=== PATIENT | male | born 1940 | race Caucasian/White ===

== ENCOUNTER 2017-06-04 12:01 | Inpatient (IN) | payer MEDICARE, OTHER ==
[~2017-06-04] VITALS: Ht 182.9 cm; Wt 82.4 kg
[2017-06-04] MEDS ORDERED: SODIUM CHLORIDE 0.9% 1,000 ML IV ONE (12:31)
[2017-06-04] MEDS ORDERED: SODIUM CHLORIDE 0.9% 1,000ML IVBOLUS ONE ×2 (13:00)
[2017-06-04] MEDS ORDERED: SODIUM CHLORIDE FLUSH 10ML SYR IVF ONE (13:00)
[2017-06-04 13:15] LABS: MEAN CORPUSCULAR HEMOGLOBIN 41.5 pg (27.5-34.5); PLATELET COUNT 156 x10^3/uL (130-400); RED BLOOD COUNT 3.72 x10^6/uL (4.38-5.82); RED CELL DISTRIBUTION WIDTH 14.6 % (9.4-14.8)
[2017-06-04 13:24] LABS: PROTHROMBIN TIME 10.4 Seconds (9.6-11.5)
[2017-06-04 13:28] LABS: ALANINE AMINOTRANSFERASE 31 U/L (12-78); ALBUMIN 3.5 g/dL (3.4-5.0); ANION GAP 11 mmol/L (5-15); CALCIUM 8.6 mg/dL (8.5-10.1); CHLORIDE 100 mmol/L (98-107)
[2017-06-04 13:33] LABS: ALKALINE PHOSPHATASE 54 U/L (45-117); BILIRUBIN,TOTAL 0.6 mg/dL (0.2-1.0); TOTAL PROTEIN 7.7 g/dL (6.4-8.2); TROPONIN I 0.075 ng/mL (0.000-0.045)
[2017-06-04] MEDS ORDERED: DILTIAZEM 125 MG in DEXTROSE 5% 100 ML IV SCH (13:36)
[2017-06-04] MEDS ORDERED: DILTIAZEM 5 MG/ML, 5ML ONE (13:38)
[2017-06-04 13:39] LABS: BASOPHILS # (AUTO) 0.01 x10^3/uL (0-0.1); BASOPHILS % (AUTO) 0 % (0-1); EOSINOPHILS % (AUTO) 0 % (1-7); LYMPHOCYTES % (AUTO) 15 % (22-44); MD MORPH REVIEW ONLY; MONOCYTES # (AUTO) 0.53 x10^3/uL (0.2-0.8); MONOCYTES % (AUTO) 11 % (2-9); NEUTROPHILS # (AUTO) 3.51 x10^3/uL (1.8-6.8); NEUTROPHILS % (AUTO) 74 % (42-75)
[2017-06-04 13:41] LABS: <PLATELET ESTIMATE> ADEQUATE; <PLT MORPHOLOGY> NORMAL PLT MORPH
[2017-06-04 13:54] LABS: MICROSCOPIC INDICATED
[2017-06-04] MEDS ORDERED: DILTIAZEM 5 MG/ML, 5ML IV ONE (14:00)
[2017-06-04 14:01] LABS: CULTURE INDICATED? YES
[2017-06-04] MEDS ORDERED: ENOXAPARIN 80 MG/0.8 ML ONE (14:24)
[2017-06-04] MEDS ORDERED: ENOXAPARIN 80 MG/0.8 ML SQ ONE (14:30)
[2017-06-04] MEDS ORDERED: TAMS0.4C2 PO (14:37)
[2017-06-04] MEDS ORDERED: FINA5TAB4 PO (14:40)
[2017-06-04] MEDS ORDERED: LISI40TA PO (14:40)
[2017-06-04] MEDS ORDERED: HYDR500C3 PO (14:40)
[2017-06-04] MEDS ORDERED: HYDR25TA6 PO (14:40)
[2017-06-04] MEDS ORDERED: CEFTRIAXONE PMX 2GM/50ML 50 ML ONE (15:23)
[2017-06-04] MEDS: CEFTRIAXONE PMX 2GM/50ML 50 ML IV SCH (15:25)
[2017-06-04] MEDS ORDERED: ONDANSETRON 2MG/ML, 2ML IVPush PRN (15:30)
[2017-06-04] MEDS ORDERED: ACETAMINOPHEN 325 MG TABLET PO PRN (15:30)
[2017-06-04] MEDS ORDERED: morphine SULFATE 10 MG/ML, 1ML IVPush PRN (15:30)
[2017-06-04] MEDS ORDERED: SODIUM CHLORIDE FLUSH 10ML SYR IVF PRN (15:30)
[2017-06-04] MEDS ORDERED: DILTIAZEM 125 MG in SODIUM CHLORIDE 0.9% 100 ML IV PRN (15:30)
[2017-06-04] MEDS ORDERED: POTASSIUM CHLORIDE 40 MEQ in SODIUM CHLORIDE 0.9% 500 ML IV ONE (16:00)
[2017-06-04 16:34] LABS: FREE T4 (FREE THYROXINE) 0.85 ng/dL (0.76-1.46); THYROID STIMULATING HORMONE 0.305 mIU/L (0.358-3.740)
[2017-06-04 16:54] VITALS: BP 101/63
[2017-06-04] MEDS: NICOTINE 14MG/24 HR PATCH.TD24 TD SCH (17:34)
[2017-06-04] MEDS: SODIUM CHLORIDE 0.9% 1,000 ML IV SCH (17:35)
[2017-06-04 18:33] LABS: CLOSTRIDIUM DIFFICILE ANTIGEN NEGATIVE; CLOSTRIDIUM DIFFICILE TOXIN NEGATIVE (Negative)
[2017-06-04 19:22] VITALS: BP 112/64
[2017-06-04] MEDS: DILTIAZEM 30 MG TABLET PO SCH (20:29)
[2017-06-04] MEDS: TAMSULOSIN 0.4 MG CAP.ER.24H PO SCH (20:29)
[2017-06-04] MEDS: DOXYCYCLINE 100MG TABLET PO SCH (20:29)
[2017-06-04] MEDS: HYDROXYUREA 500 MG CAPSULE PO SCH (20:33)
[2017-06-05] MEDS: SODIUM CHLORIDE 0.9% 1,000 ML IV SCH ×4 (00:49→21:46)
[2017-06-05 01:57] VITALS: BP 100/64
[2017-06-05] MEDS: DILTIAZEM 30 MG TABLET PO SCH ×4 (02:05→21:41)
[2017-06-05 05:13] LABS: BASOPHILS # (AUTO) 0.01 x10^3/uL (0-0.1); BASOPHILS % (AUTO) 0 % (0-1); EOSINOPHILS # (AUTO) 0.03 x10^3/uL (0-0.4); EOSINOPHILS % (AUTO) 1 % (1-7); LYMPHOCYTES % (AUTO) 28 % (22-44); MD NO; MEAN CORPUSCULAR HEMOGLOBIN 42.1 pg (27.5-34.5); MEAN CORPUSCULAR HGB CONC 34.7 g/dL (33.2-36.2); MEAN CORPUSCULAR VOLUME 121.5 fL (81-97); MEAN PLATELET VOLUME 8.3 fL (7.4-10.4); MONOCYTES % (AUTO) 14 % (2-9); NEUTROPHILS # (AUTO) 1.57 x10^3/uL (1.8-6.8); NEUTROPHILS % (AUTO) 56 % (42-75); PLATELET COUNT 122 x10^3/uL (130-400); RED BLOOD COUNT 2.94 x10^6/uL (4.38-5.82); RED CELL DISTRIBUTION WIDTH 14.2 % (9.4-14.8)
[2017-06-05 05:21] LABS: ALBUMIN 2.6 g/dL (3.4-5.0); CHLORIDE 110 mmol/L (98-107)
[2017-06-05 05:47] LABS: ALANINE AMINOTRANSFERASE 27 U/L (12-78); ALKALINE PHOSPHATASE 43 U/L (45-117); ANION GAP 7 mmol/L (5-15); BILIRUBIN,TOTAL 0.4 mg/dL (0.2-1.0); CALCIUM 7.7 mg/dL (8.5-10.1); CREATININE 1.52 mg/dL (0.7-1.3); FOLATE LEVEL 17.9 ng/mL (3.1-17.5); THYROID STIMULATING HORMONE 0.496 mIU/L (0.358-3.740); TOTAL PROTEIN 5.8 g/dL (6.4-8.2)
[2017-06-05 08:21] VITALS: BP 100/58
[2017-06-05] MEDS: TAMSULOSIN 0.4 MG CAP.ER.24H PO SCH ×2 (08:26→21:40)
[2017-06-05] MEDS: DOXYCYCLINE 100MG TABLET PO SCH ×2 (08:26→21:41)
[2017-06-05] MEDS: FINASTERIDE 5 MG TABLET PO SCH (08:26)
[2017-06-05] MEDS: HYDROXYUREA 500 MG CAPSULE PO SCH ×2 (09:00→21:00)
[2017-06-05 13:31] LABS: TROPONIN I 0.142 ng/mL (0.000-0.045)
[2017-06-05 14:30] VITALS: BP 99/69
[2017-06-05] MEDS: ENOXAPARIN 40 MG/0.4 ML SQ SCH (15:09)
[2017-06-05] MEDS: CEFTRIAXONE PMX 2GM/50ML 50 ML IV SCH (16:19)
[2017-06-05] MEDS: NICOTINE 14MG/24 HR PATCH.TD24 TD SCH (16:23)
[2017-06-05 20:26] VITALS: BP 113/65
[2017-06-06 02:46] VITALS: BP 99/45
[2017-06-06] MEDS: DILTIAZEM 30 MG TABLET PO SCH ×5 (02:52→21:00)
[2017-06-06 05:59] LABS: MEAN CORPUSCULAR HEMOGLOBIN 41.7 pg (27.5-34.5); MEAN CORPUSCULAR HGB CONC 34.6 g/dL (33.2-36.2); MEAN CORPUSCULAR VOLUME 120.4 fL (81-97); MEAN PLATELET VOLUME 8.1 fL (7.4-10.4); PLATELET COUNT 112 x10^3/uL (130-400); RED BLOOD COUNT 2.56 x10^6/uL (4.38-5.82); RED CELL DISTRIBUTION WIDTH 14.4 % (9.4-14.8)
[2017-06-06 06:00] LABS: ALBUMIN 2.3 g/dL (3.4-5.0); ANION GAP 7 mmol/L (5-15); CALCIUM 7.5 mg/dL (8.5-10.1); CHLORIDE 113 mmol/L (98-107)
[2017-06-06 06:04] LABS: ALANINE AMINOTRANSFERASE 29 U/L (12-78); ALKALINE PHOSPHATASE 39 U/L (45-117); BILIRUBIN,TOTAL 0.4 mg/dL (0.2-1.0); CREATININE 1.22 mg/dL (0.7-1.3); TOTAL PROTEIN 5.2 g/dL (6.4-8.2)
[2017-06-06 06:38] LABS: BASOPHILS # (AUTO) 0.01 x10^3/uL (0-0.1); BASOPHILS % (AUTO) 1 % (0-1); EOSINOPHILS # (AUTO) 0.05 x10^3/uL (0-0.4); EOSINOPHILS % (AUTO) 2 % (1-7); LYMPHOCYTES # (AUTO) 0.98 x10^3/uL (1-3.4); LYMPHOCYTES % (AUTO) 46 % (22-44); MD SCAN; MONOCYTES # (AUTO) 0.33 x10^3/uL (0.2-0.8); MONOCYTES % (AUTO) 15 % (2-9); NEUTROPHILS # (AUTO) 0.76 x10^3/uL (1.8-6.8); NEUTROPHILS % (AUTO) 36 % (42-75)
[2017-06-06 06:41] VITALS: BP 113/63
[2017-06-06] MEDS: HYDROXYUREA 500 MG CAPSULE PO SCH (09:00)
[2017-06-06] MEDS: DOXYCYCLINE 100MG TABLET PO SCH ×2 (10:25→20:07)
[2017-06-06] MEDS: TAMSULOSIN 0.4 MG CAP.ER.24H PO SCH ×2 (10:25→20:07)
[2017-06-06] MEDS: FINASTERIDE 5 MG TABLET PO SCH (10:26)
[2017-06-06] MEDS: SODIUM CHLORIDE 0.9% 1,000 ML IV SCH ×2 (10:27→22:11)
[2017-06-06 12:56] VITALS: BP 131/64
[2017-06-06] MEDS: ENOXAPARIN 40 MG/0.4 ML SQ SCH (15:40)
[2017-06-06] MEDS: CEFTRIAXONE PMX 2GM/50ML 50 ML IV SCH (15:41)
[2017-06-06] MEDS: NICOTINE 14MG/24 HR PATCH.TD24 TD SCH (15:44)
[2017-06-06 15:48] VITALS: BP 137/58
[2017-06-06 20:26] VITALS: BP 138/68
[2017-06-06 22:05] VITALS: BP 169/68
[2017-06-07 02:52] VITALS: BP 145/51
[2017-06-07] MEDS: DILTIAZEM 30 MG TABLET PO SCH ×2 (02:55→09:00)
[2017-06-07] MEDS: ASPIRIN 325 MG TABLET PO SCH (06:29)
[2017-06-07 07:35] VITALS: BP 145/58
[2017-06-07] MEDS: TAMSULOSIN 0.4 MG CAP.ER.24H PO SCH ×2 (10:02→20:18)
[2017-06-07] MEDS: DOXYCYCLINE 100MG TABLET PO SCH ×2 (10:02→20:18)
[2017-06-07] MEDS: FINASTERIDE 5 MG TABLET PO SCH (10:02)
[2017-06-07] MEDS ORDERED: NICO-486 TD (11:47)
[2017-06-07] MEDS ORDERED: ASPI325T17 PO (11:47)
[2017-06-07] MEDS ORDERED: CEFD300C37 PO (11:47)
[2017-06-07] MEDS ORDERED: DOXY100T PO (11:47)
[2017-06-07] MEDS ORDERED: METO25TA91 PO (11:47)
[2017-06-07 13:10] VITALS: BP 155/66
[2017-06-07] MEDS: ENOXAPARIN 40 MG/0.4 ML SQ SCH (15:25)
[2017-06-07] MEDS: CEFTRIAXONE PMX 2GM/50ML 50 ML IV SCH (15:25)
[2017-06-07] MEDS: NICOTINE 14MG/24 HR PATCH.TD24 TD SCH (15:25)
[2017-06-07] MEDS: SODIUM CHLORIDE 0.9% 1,000 ML IV SCH (16:00)
[2017-06-07 19:25] VITALS: BP 144/70
[2017-06-08 03:38] VITALS: BP 119/50
[2017-06-08] MEDS ORDERED: METOPROLOL SUCCINATE 25 MG TAB.ER.24H PO SCH (06:00)
[2017-06-08 07:19] VITALS: BP 148/78
[2017-06-08] MEDS: DOXYCYCLINE 100MG TABLET PO SCH ×2 (10:32→19:48)
[2017-06-08] MEDS: ASPIRIN 325 MG TABLET PO SCH (10:32)
[2017-06-08] MEDS: TAMSULOSIN 0.4 MG CAP.ER.24H PO SCH ×2 (10:32→19:48)
[2017-06-08] MEDS: FINASTERIDE 5 MG TABLET PO SCH (10:32)
[2017-06-08 14:24] VITALS: BP 154/63
[2017-06-08] MEDS: ENOXAPARIN 40 MG/0.4 ML SQ SCH (14:30)
[2017-06-08] MEDS: SODIUM CHLORIDE 0.9% 1,000 ML IV SCH (15:22)
[2017-06-08] MEDS: CEFTRIAXONE PMX 2GM/50ML 50 ML IV SCH (15:22)
[2017-06-08] MEDS: NICOTINE 14MG/24 HR PATCH.TD24 TD SCH (15:22)
[2017-06-08 20:37] VITALS: BP 164/67
[2017-06-09] MEDS: SODIUM CHLORIDE 0.9% 1,000 ML IV SCH ×4 (04:09→19:53)
[2017-06-09 04:13] VITALS: BP 133/56
[2017-06-09] MEDS: FINASTERIDE 5 MG TABLET PO SCH (08:48)
[2017-06-09] MEDS: DOXYCYCLINE 100MG TABLET PO SCH ×2 (08:48→21:29)
[2017-06-09] MEDS: ASPIRIN 325 MG TABLET PO SCH (08:48)
[2017-06-09] MEDS: TAMSULOSIN 0.4 MG CAP.ER.24H PO SCH ×2 (08:48→22:23)
[2017-06-09 08:53] VITALS: BP 162/75
[2017-06-09] MEDS ORDERED: CEFAZOLIN PMX 1GM/50ML 50 ML IVPB ONE (12:00)
[2017-06-09] MEDS: NICOTINE 14MG/24 HR PATCH.TD24 TD SCH (14:19)
[2017-06-09] MEDS: ENOXAPARIN 40 MG/0.4 ML SQ SCH (14:19)
[2017-06-09] MEDS: CEFTRIAXONE PMX 2GM/50ML 50 ML IV SCH (14:19)
[2017-06-09 14:25] VITALS: BP 174/75
[2017-06-09 21:25] VITALS: BP 175/66
[2017-06-09] MEDS: HYDROCHLOROTHIAZIDE 25 MG TABLET PO SCH (21:29)
[2017-06-10 02:30] VITALS: BP 169/66
[2017-06-10] MEDS: SODIUM CHLORIDE 0.9% 1,000 ML IV SCH ×4 (03:53→19:53)
[2017-06-10 04:11] VITALS: BP 169/66
[2017-06-10 05:32] LABS: ANION GAP 8 mmol/L (5-15); CHLORIDE 115 mmol/L (98-107); CREATININE 0.92 mg/dL (0.7-1.3)
[2017-06-10 05:36] LABS: MEAN CORPUSCULAR HEMOGLOBIN 41.5 pg (27.5-34.5); MEAN CORPUSCULAR HGB CONC 34.4 g/dL (33.2-36.2); MEAN CORPUSCULAR VOLUME 120.5 fL (81-97); MEAN PLATELET VOLUME 8.7 fL (7.4-10.4); PLATELET COUNT 136 x10^3/uL (130-400); RED CELL DISTRIBUTION WIDTH 14.1 % (9.4-14.8)
[2017-06-10] MEDS: ASPIRIN 325 MG TABLET PO SCH (06:00)
[2017-06-10 06:32] LABS: BASOPHILS # (AUTO) 0.01 x10^3/uL (0-0.1); BASOPHILS % (AUTO) 1 % (0-1); EOSINOPHILS # (AUTO) 0.06 x10^3/uL (0-0.4); EOSINOPHILS % (AUTO) 2 % (1-7); LYMPHOCYTES # (AUTO) 1.06 x10^3/uL (1-3.4); LYMPHOCYTES % (AUTO) 36 % (22-44); MD SCAN; MONOCYTES # (AUTO) 0.45 x10^3/uL (0.2-0.8); MONOCYTES % (AUTO) 15 % (2-9); NEUTROPHILS % (AUTO) 47 % (42-75)
[2017-06-10] MEDS ORDERED: MIDAZOLAM 1 MG/ML, 5ML ONE ×2 (08:23→08:45)
[2017-06-10] MEDS ORDERED: FENTANYL PF 100 MCG/2ML ONE ×2 (08:23→08:45)
[2017-06-10] MEDS ORDERED: LIDOCAINE 2%, 20ML ONE ×2 (08:23→08:46)
[2017-06-10] MEDS ORDERED: VANCOMYCIN PMX 1GM/200ML 0 ML ONE (08:23)
[2017-06-10] MEDS ORDERED: VANCOMYCIN 500 MG ONE (08:23)
[2017-06-10 08:24] VITALS: BP 173/72
[2017-06-10] MEDS ORDERED: CEFAZOLIN 1,000 MG ONE ×2 (08:25→08:46)
[2017-06-10] MEDS ORDERED: CEFAZOLIN PMX 1GM/50ML 0 ML ONE (08:25)
[2017-06-10] MEDS: FINASTERIDE 5 MG TABLET PO SCH (08:26)
[2017-06-10] MEDS: DOXYCYCLINE 100MG TABLET PO SCH ×2 (08:26→20:39)
[2017-06-10] MEDS: TAMSULOSIN 0.4 MG CAP.ER.24H PO SCH ×2 (08:26→20:38)
[2017-06-10] MEDS: HYDROCHLOROTHIAZIDE 25 MG TABLET PO SCH (08:26)
[2017-06-10] MEDS ORDERED: CEFAZOLIN PMX 1GM/50ML 50 ML ONE (08:46)
[2017-06-10] MEDS ORDERED: HYDROcodone/APAP 5/325 TABLET PO PRN (10:30)
[2017-06-10] MEDS: hydrALAzine 20 MG/ML, 1ML IVPush PRN ×2 (11:00→20:51)
[2017-06-10 12:45] VITALS: BP 164/69
[2017-06-10] MEDS: HYDROcodone/APAP 5/325 TABLET PO PRN ×2 (14:14→22:11)
[2017-06-10] MEDS: ENOXAPARIN 40 MG/0.4 ML SQ SCH (14:30)
[2017-06-10] MEDS ORDERED: CEFAZOLIN PMX 1GM/50ML 50 ML IVPB SCH (17:00)
[2017-06-10] MEDS: CEFTRIAXONE PMX 2GM/50ML 50 ML IV SCH (18:19)
[2017-06-10] MEDS: NICOTINE 14MG/24 HR PATCH.TD24 TD SCH (18:23)
[2017-06-10 20:32] VITALS: BP 176/77
[2017-06-10] MEDS: SODIUM CHLORIDE FLUSH 10ML SYR IVF SCH (21:00)
[2017-06-10 22:13] VITALS: BP 154/68
[2017-06-11] MEDS: SODIUM CHLORIDE 0.9% 1,000 ML IV SCH ×6 (01:21→22:05)
[2017-06-11 01:22] VITALS: BP 158/67
[2017-06-11] MEDS: ASPIRIN 325 MG TABLET PO SCH (07:19)
[2017-06-11 08:54] VITALS: BP 158/70
[2017-06-11] MEDS: TAMSULOSIN 0.4 MG CAP.ER.24H PO SCH ×2 (09:01→22:06)
[2017-06-11] MEDS: HYDROCHLOROTHIAZIDE 25 MG TABLET PO SCH (09:01)
[2017-06-11] MEDS: DOXYCYCLINE 100MG TABLET PO SCH ×2 (09:01→22:06)
[2017-06-11] MEDS: FINASTERIDE 5 MG TABLET PO SCH (09:01)
[2017-06-11] MEDS: SODIUM CHLORIDE FLUSH 10ML SYR IVF SCH ×2 (09:18→22:05)
[2017-06-11] MEDS: METOPROLOL SUCCINATE 25 MG TAB.ER.24H PO SCH (11:23)
[2017-06-11 14:31] VITALS: BP 146/63
[2017-06-11] MEDS: CEFTRIAXONE PMX 2GM/50ML 50 ML IV SCH (15:06)
[2017-06-11] MEDS: NICOTINE 14MG/24 HR PATCH.TD24 TD SCH (15:06)
[2017-06-11] MEDS: ENOXAPARIN 40 MG/0.4 ML SQ SCH (15:06)
[2017-06-11 20:59] VITALS: BP 166/78
[2017-06-11] MEDS: HYDROcodone/APAP 5/325 TABLET PO PRN (22:06)
[2017-06-12 00:32] VITALS: BP 141/63
[2017-06-12] MEDS: SODIUM CHLORIDE 0.9% 1,000 ML IV SCH ×2 (05:40→11:16)
[2017-06-12] MEDS: ASPIRIN 325 MG TABLET PO SCH (06:15)
[2017-06-12] MEDS: METOPROLOL SUCCINATE 25 MG TAB.ER.24H PO SCH (06:15)
[2017-06-12] MEDS: DOXYCYCLINE 100MG TABLET PO SCH (09:00)
[2017-06-12 09:32] VITALS: BP 145/66
[2017-06-12] MEDS: TAMSULOSIN 0.4 MG CAP.ER.24H PO SCH (09:33)
[2017-06-12] MEDS: HYDROCHLOROTHIAZIDE 25 MG TABLET PO SCH (09:33)
[2017-06-12] MEDS: FINASTERIDE 5 MG TABLET PO SCH (09:33)
[2017-06-12] MEDS: SODIUM CHLORIDE FLUSH 10ML SYR IVF SCH (09:33)
[2017-06-12] MEDS ORDERED: METO-93 PO (11:07)
[2017-06-12] MEDS ORDERED: APIX5TAB PO (11:15)
[2017-06-12] MEDS ORDERED: RIVA15TA PO (11:22)
[2017-06-12] MEDS ORDERED: RIVA20TA PO (11:24)
[2017-06-12] MEDS ORDERED: APIXABAN 5 MG TABLET PO SCH (11:30)
[2017-06-12] MEDS ORDERED: RIVAROXABAN 15 MG TABLET PO SCH (11:30)
[2017-06-12] MEDS ORDERED: METOPROLOL SUCCINATE 25 MG TAB.ER.24H PO SCH (21:00)
== END 2017-06-12 12:21 | disposition home or self-care (01) | DRG 871 ==
LOC: SUATTDRO 14:41 → ED 15:14 → EDIP 15:15 → ED 16:21 → 5SO 16:34 → DCLOUNGE 06-12 12:01
PROVIDERS: ADMIT Internal Medicine; ATTEND Internal Medicine
PROC: 0JH606Z Insertion of Pacemaker, Dual Chamber into Chest Subcutaneous Tissue and Fascia, Open Approach (ICD-10-PCS; principal; 2017-06-10)
PROC: 02H63JZ Insertion of Pacemaker Lead into Right Atrium, Percutaneous Approach (ICD-10-PCS; 2017-06-10)
PROC: 02HK3JZ Insertion of Pacemaker Lead into Right Ventricle, Percutaneous Approach (ICD-10-PCS; 2017-06-10)
DX: A41.9 Sepsis, unspecified organism (principal); E43 Unspecified severe protein-calorie malnutrition; G93.40 Encephalopathy, unspecified; J18.9 Pneumonia, unspecified organism; D61.818 Other pancytopenia; A04.72 Enterocolitis due to Clostridium difficile, not specified as recurrent; N17.9 Acute kidney failure, unspecified; D68.69 Other thrombophilia; I48.92 Unspecified atrial flutter; N39.0 Urinary tract infection, site not specified; I48.0 Paroxysmal atrial fibrillation; E86.0 Dehydration; D45 Polycythemia vera; D75.89 Other specified diseases of blood and blood-forming organs; E87.6 Hypokalemia; M89.8X8 Other specified disorders of bone, other site; F17.210 Nicotine dependence, cigarettes, uncomplicated; I10 Essential (primary) hypertension; N40.0 Benign prostatic hyperplasia without lower urinary tract symptoms; Z80.1 Family history of malignant neoplasm of trachea, bronchus and lung; Z96.642 Presence of left artificial hip joint; Z68.24 Body mass index [BMI] 24.0-24.9, adult; I49.5 Sick sinus syndrome
CPT/HCPCS: 33208; 36415; 71045; 80048; 80053; 81001; 82607; 82746; 83605; 83735; 83880; 84100; 84145; 84439; 84443; 84484; 85025; 85610; 85730; 87040; 87070; 87086; 87205; 87324; 93005; 93306; 96361; 96372; 96374; 99156; 99157; C1779; C1785; C1892; J0690; J0696; J1650; J2250; J3010; J3370; J3480; J3490; J0360; J7030; J7040

== ENCOUNTER 2017-06-30 20:20 | Emergency (ER) | payer OTHER ==
[~2017-06-30] VITALS: Ht 182.9 cm; Wt 78.1 kg
[~2017-06-30 20:20] MED LIST: APIX5TAB PO; ASPI325T17 PO; CEFD300C37 PO; DOXY100T PO; FINA5TAB4 PO; HYDR25TA6 PO; HYDR500C3 PO; LISI40TA PO; METO-93 PO; METO25TA91 PO; NICO-486 TD; RIVA15TA PO; RIVA20TA PO; TAMS0.4C2 PO
[2017-06-30] MEDS ORDERED: SODIUM CHLORIDE FLUSH 10ML SYR IVF ONE (21:00)
[2017-06-30 21:09] LABS: ALANINE AMINOTRANSFERASE 19 U/L (12-78); ANION GAP 9 mmol/L (5-15); CALCIUM 7.7 mg/dL (8.5-10.1); CHLORIDE 115 mmol/L (98-107); CREATININE 1.43 mg/dL (0.7-1.3)
[2017-06-30 21:12] LABS: ALKALINE PHOSPHATASE 51 U/L (45-117); BILIRUBIN,TOTAL 0.4 mg/dL (0.2-1.0); TOTAL PROTEIN 6.2 g/dL (6.4-8.2)
[2017-06-30 21:36] LABS: BASOPHILS # (AUTO) 0.02 x10^3/uL (0-0.1); BASOPHILS % (AUTO) 0 % (0-1); EOSINOPHILS # (AUTO) 0.06 x10^3/uL (0-0.4); EOSINOPHILS % (AUTO) 1 % (1-7); LYMPHOCYTES # (AUTO) 1.24 x10^3/uL (1-3.4); LYMPHOCYTES % (AUTO) 28 % (22-44); MD MORPH REVIEW ONLY; MEAN CORPUSCULAR HGB CONC 33.7 g/dL (33.2-36.2); MEAN CORPUSCULAR VOLUME 121.5 fL (81-97); MEAN PLATELET VOLUME 8.3 fL (7.4-10.4); MONOCYTES # (AUTO) 0.43 x10^3/uL (0.2-0.8); MONOCYTES % (AUTO) 10 % (2-9); NEUTROPHILS # (AUTO) 2.63 x10^3/uL (1.8-6.8); NEUTROPHILS % (AUTO) 60 % (42-75); PLATELET COUNT 182 x10^3/uL (130-400); RED BLOOD COUNT 1.99 x10^6/uL (4.38-5.82); RED CELL DISTRIBUTION WIDTH 18.4 % (9.4-14.8)
[2017-06-30 21:38] LABS: <PLATELET ESTIMATE> ADEQUATE; ANISOCYTOSIS 2+; POLYCHROMASIA 1+
[2017-06-30 21:39] LABS: <PLT MORPHOLOGY> NORMAL PLT MORPH
[2017-06-30 22:44] VITALS: BP 133/76
== END 2017-06-30 22:46 | disposition home or self-care (01) ==
LOC: ED 21:15
DX: R60.0 Localized edema (principal); E46 Unspecified protein-calorie malnutrition; E88.09 Other disorders of plasma-protein metabolism, not elsewhere classified; I10 Essential (primary) hypertension; I48.91 Unspecified atrial fibrillation
CPT/HCPCS: 36415; 80053; 83880; 85025; 93005; 99285

== ENCOUNTER → 2017-08-04 | Outpatient (CLI) | payer OTHER ==
[~2017-08-04] MED LIST changes: +LISI-170 PO; +OMEP-110 PO; +ONDA4TAB13 SL; +POLY17PO5 PO
[2017-08-04 11:55] LABS: MEAN CORPUSCULAR HEMOGLOBIN 37.2 pg (27.5-34.5); MEAN CORPUSCULAR HGB CONC 33.8 g/dL (33.2-36.2); MEAN CORPUSCULAR VOLUME 110.2 fL (81-97); PLATELET COUNT 172 x10^3/uL (130-400); RED BLOOD COUNT 3.11 x10^6/uL (4.38-5.82); RED CELL DISTRIBUTION WIDTH 23.2 % (9.4-14.8)
[2017-08-04 12:29] LABS: MD YES
[2017-08-04 12:33] LABS: BASOS#(MANUAL) 0.04 x10^3/uL (0-0.1); BASOS% (MANUAL) 1 % (0-1); EOS#(MANUAL) 0.04 x10^3/uL (0.0-0.4); EOS% (MANUAL) 1 % (1-7); LYMPH#(MANUAL) 1.18 x10^3/uL (1-3.4); LYMPHS% (MANUAL) 28 % (22-44); MONOS#(MANUAL) 0.34 x10^3/uL (0.3-2.7); MONOS% (MANUAL) 8 % (2-9); REACTIVE LYMPHS # (MANUAL) 0.04 x10^3/uL (0-0); REACTIVE LYMPHS % (MANUAL) 1 % (0-0); SEG#(MANUAL) 2.56 x10^3/uL (1.8-6.8); SEGS% (MANUAL) 61 % (42-75)
[2017-08-04 12:36] LABS: <PLATELET ESTIMATE> ADEQUATE; <PLT MORPHOLOGY> NORMAL PLT MORPH; ANISOCYTOSIS 2+; HYPERSEG PMNs 1+; POLYCHROMASIA 1+
== END | disposition home or self-care (01) ==
LOC: LAB 11:32
PROVIDERS: ATTEND Nurse Practitioner Family
DX: D64.9 Anemia, unspecified (principal); I10 Essential (primary) hypertension; I48.92 Unspecified atrial flutter; R06.00 Dyspnea, unspecified; Z95.0 Presence of cardiac pacemaker
CPT/HCPCS: 36415; 85025

== ENCOUNTER 2017-08-11 23:44 | Inpatient (IN) | payer OTHER ==
[~2017-08-11] VITALS: Ht 182.9 cm; Wt 69.4 kg
[2017-08-12 01:07] LABS: ALBUMIN 3.4 g/dL (3.4-5.0); ANION GAP 8 mmol/L (5-15); CALCIUM 8.4 mg/dL (8.5-10.1); CHLORIDE 114 mmol/L (98-107); CREATININE 1.35 mg/dL (0.7-1.3)
[2017-08-12 01:11] LABS: TROPONIN I < 0.015 ng/mL (0.000-0.045)
[2017-08-12 01:17] LABS: MEAN CORPUSCULAR HEMOGLOBIN 37.1 pg (27.5-34.5); MEAN CORPUSCULAR HGB CONC 33.6 g/dL (33.2-36.2); MEAN CORPUSCULAR VOLUME 110.3 fL (81-97); MEAN PLATELET VOLUME 8.7 fL (7.4-10.4); PLATELET COUNT 155 x10^3/uL (130-400); RED BLOOD COUNT 3.16 x10^6/uL (4.38-5.82); RED CELL DISTRIBUTION WIDTH 23.1 % (9.4-14.8)
[2017-08-12 01:52] LABS: BASOPHILS # (AUTO) 0.02 x10^3/uL (0-0.1); BASOPHILS % (AUTO) 0 % (0-1); EOSINOPHILS # (AUTO) 0.15 x10^3/uL (0-0.4); EOSINOPHILS % (AUTO) 3 % (1-7); LYMPHOCYTES # (AUTO) 1.05 x10^3/uL (1-3.4); LYMPHOCYTES % (AUTO) 21 % (22-44); MD SCAN; MONOCYTES # (AUTO) 0.68 x10^3/uL (0.2-0.8); MONOCYTES % (AUTO) 13 % (2-9); NEUTROPHILS # (AUTO) 3.19 x10^3/uL (1.8-6.8); NEUTROPHILS % (AUTO) 63 % (42-75)
[2017-08-12] MEDS ORDERED: OMNIPAQUE 350 MG/ML, 100ML BOTTLE ONE (03:45)
[2017-08-12] MEDS ORDERED: ONDANSETRON 2MG/ML, 2ML IVPush PRN ×2 (05:30→06:00)
[2017-08-12] MEDS ORDERED: MORPHINE SULFATE 4 MG/ML, 1ML IVPush PRN (05:30)
[2017-08-12 06:00] VITALS: BP 159/60
[2017-08-12] MEDS ORDERED: ONDANSETRON ODT 4 MG BC PRN (06:00)
[2017-08-12] MEDS: ENOXAPARIN 40 MG/0.4 ML SQ SCH (06:24)
[2017-08-12] MEDS: SODIUM CHLORIDE 0.9% 1,000 ML IV SCH ×2 (06:24→18:29)
[2017-08-12 07:32] VITALS: BP 181/63
[2017-08-12] MEDS: HYDROXYUREA 500 MG CAPSULE PO SCH ×2 (09:00→21:00)
[2017-08-12] MEDS: POLYETHYLENE GLYCOL 17 GM PACKET PO SCH (10:08)
[2017-08-12] MEDS: TAMSULOSIN 0.4 MG CAP.ER.24H PO SCH ×2 (10:10→22:05)
[2017-08-12] MEDS: OMEPRAZOLE 20 MG CAPSULE.DR PO SCH (10:10)
[2017-08-12] MEDS: METOPROLOL SUCCINATE 50 MG TAB.ER.24H PO SCH (10:10)
[2017-08-12] MEDS: ASPIRIN 325 MG TABLET PO SCH (10:10)
[2017-08-12] MEDS: RIVAROXABAN 15 MG TABLET PO SCH (10:11)
[2017-08-12] MEDS: FINASTERIDE 5 MG TABLET PO SCH (10:11)
[2017-08-12 13:12] VITALS: BP 168/68
[2017-08-12 20:00] VITALS: BP 169/69
[2017-08-12 21:37] VITALS: BP 158/72
[2017-08-13] MEDS ORDERED: LISI40TA PO (01:55)
[2017-08-13 03:33] VITALS: BP 164/72
[2017-08-13 05:44] LABS: ANION GAP 15 mmol/L (5-15); CALCIUM 8.4 mg/dL (8.5-10.1); CHLORIDE 112 mmol/L (98-107); CREATININE 1.34 mg/dL (0.7-1.3)
[2017-08-13 05:50] LABS: MEAN CORPUSCULAR HEMOGLOBIN 36.5 pg (27.5-34.5); MEAN CORPUSCULAR HGB CONC 32.8 g/dL (33.2-36.2); MEAN CORPUSCULAR VOLUME 111.4 fL (81-97); MEAN PLATELET VOLUME 8.4 fL (7.4-10.4); PLATELET COUNT 195 x10^3/uL (130-400); RED BLOOD COUNT 3.33 x10^6/uL (4.38-5.82); RED CELL DISTRIBUTION WIDTH 22.9 % (9.4-14.8)
[2017-08-13 06:23] LABS: BASOPHILS # (AUTO) 0.03 x10^3/uL (0-0.1); BASOPHILS % (AUTO) 0 % (0-1); EOSINOPHILS # (AUTO) 0.31 x10^3/uL (0-0.4); EOSINOPHILS % (AUTO) 4 % (1-7); LYMPHOCYTES # (AUTO) 3.37 x10^3/uL (1-3.4); LYMPHOCYTES % (AUTO) 43 % (22-44); MD SCAN; MONOCYTES # (AUTO) 1.25 x10^3/uL (0.2-0.8); MONOCYTES % (AUTO) 16 % (2-9); NEUTROPHILS # (AUTO) 2.84 x10^3/uL (1.8-6.8); NEUTROPHILS % (AUTO) 37 % (42-75)
[2017-08-13 06:48] VITALS: BP 173/69
[2017-08-13] MEDS: ENOXAPARIN 40 MG/0.4 ML SQ SCH (08:00)
[2017-08-13] MEDS ORDERED: REGADENOSON 0.4 MG/5 ML SYRINGE ONE (08:17)
[2017-08-13 08:26] LABS: TROPONIN I < 0.015 ng/mL (0.000-0.045)
[2017-08-13] MEDS: HYDROXYUREA 500 MG CAPSULE PO SCH ×2 (09:00→21:00)
[2017-08-13] MEDS: POLYETHYLENE GLYCOL 17 GM PACKET PO SCH (09:00)
[2017-08-13 13:02] VITALS: BP 157/71
[2017-08-13] MEDS: OMEPRAZOLE 20 MG CAPSULE.DR PO SCH (13:06)
[2017-08-13] MEDS: METOPROLOL SUCCINATE 50 MG TAB.ER.24H PO SCH (13:06)
[2017-08-13] MEDS: TAMSULOSIN 0.4 MG CAP.ER.24H PO SCH ×2 (13:06→20:43)
[2017-08-13] MEDS: FINASTERIDE 5 MG TABLET PO SCH (13:06)
[2017-08-13] MEDS: ASPIRIN 325 MG TABLET PO SCH (13:06)
[2017-08-13] MEDS: RIVAROXABAN 15 MG TABLET PO SCH (13:06)
[2017-08-13 20:00] VITALS: BP 169/67
[2017-08-13] MEDS: ACETAMINOPHEN 325 MG TABLET PO PRN (21:41)
[2017-08-14 02:00] VITALS: BP 165/68
[2017-08-14 05:52] LABS: MEAN CORPUSCULAR HEMOGLOBIN 36.6 pg (27.5-34.5); MEAN CORPUSCULAR HGB CONC 33.6 g/dL (33.2-36.2); MEAN PLATELET VOLUME 8.7 fL (7.4-10.4); PLATELET COUNT 161 x10^3/uL (130-400); RED BLOOD COUNT 2.98 x10^6/uL (4.38-5.82); RED CELL DISTRIBUTION WIDTH 22.7 % (9.4-14.8)
[2017-08-14 05:56] LABS: CHLORIDE 111 mmol/L (98-107)
[2017-08-14 06:02] LABS: ANION GAP 10 mmol/L (5-15); CALCIUM 8.6 mg/dL (8.5-10.1); CREATININE 1.13 mg/dL (0.7-1.3)
[2017-08-14 07:20] VITALS: BP 171/66
[2017-08-14 08:25] LABS: BASOPHILS # (AUTO) 0.02 x10^3/uL (0-0.1); BASOPHILS % (AUTO) 0 % (0-1); EOSINOPHILS # (AUTO) 0.13 x10^3/uL (0-0.4); EOSINOPHILS % (AUTO) 3 % (1-7); LYMPHOCYTES # (AUTO) 0.84 x10^3/uL (1-3.4); LYMPHOCYTES % (AUTO) 17 % (22-44); MD MORPH REVIEW ONLY; MONOCYTES # (AUTO) 0.62 x10^3/uL (0.2-0.8); MONOCYTES % (AUTO) 12 % (2-9); NEUTROPHILS # (AUTO) 3.38 x10^3/uL (1.8-6.8); NEUTROPHILS % (AUTO) 68 % (42-75)
[2017-08-14 08:27] LABS: HYPERSEG PMNs 1+
[2017-08-14 08:28] LABS: <PLATELET ESTIMATE> ADEQUATE; <PLT MORPHOLOGY> NORMAL PLT MORPH; ANISOCYTOSIS 1+
[2017-08-14] MEDS: RIVAROXABAN 15 MG TABLET PO SCH (08:28)
[2017-08-14] MEDS: TAMSULOSIN 0.4 MG CAP.ER.24H PO SCH (08:28)
[2017-08-14] MEDS: OMEPRAZOLE 20 MG CAPSULE.DR PO SCH (08:28)
[2017-08-14] MEDS: ASPIRIN 325 MG TABLET PO SCH (08:28)
[2017-08-14] MEDS: POLYETHYLENE GLYCOL 17 GM PACKET PO SCH (08:28)
[2017-08-14] MEDS: FINASTERIDE 5 MG TABLET PO SCH (08:28)
[2017-08-14] MEDS: METOPROLOL SUCCINATE 50 MG TAB.ER.24H PO SCH (08:28)
[2017-08-14] MEDS: ACETAMINOPHEN 325 MG TABLET PO PRN (08:56)
[2017-08-14] MEDS: HYDROXYUREA 500 MG CAPSULE PO SCH (09:00)
[2017-08-14 13:50] VITALS: BP 138/66
== END 2017-08-14 17:10 | disposition home or self-care (01) | DRG 190 ==
LOC: ED 08-12 00:34 → EDIP 08-12 05:16 → 4EST 08-12 05:45
PROVIDERS: ADMIT Hospitalist; ATTEND Hospitalist
DX: J44.1 Chronic obstructive pulmonary disease with (acute) exacerbation (principal); N17.0 Acute kidney failure with tubular necrosis; D68.69 Other thrombophilia; I48.2 Chronic atrial fibrillation; D64.9 Anemia, unspecified; D45 Polycythemia vera; I12.9 Hypertensive chronic kidney disease with stage 1 through stage 4 chronic kidney disease, or unspecified chronic kidney disease; Z96.642 Presence of left artificial hip joint; R32 Unspecified urinary incontinence; N18.9 Chronic kidney disease, unspecified; K57.90 Diverticulosis of intestine, part unspecified, without perforation or abscess without bleeding; N40.0 Benign prostatic hyperplasia without lower urinary tract symptoms; Z87.891 Personal history of nicotine dependence; Z87.440 Personal history of urinary (tract) infections; Z85.46 Personal history of malignant neoplasm of prostate; Z80.1 Family history of malignant neoplasm of trachea, bronchus and lung; Z79.01 Long term (current) use of anticoagulants; Z82.3 Family history of stroke; Z95.0 Presence of cardiac pacemaker
CPT/HCPCS: 36415; 36600; 70450; 71045; 71275; 78452; 80048; 82040; 82140; 82803; 82962; 83735; 84100; 84484; 85025; 93005; 93017; 93306; 94010; 95819; 99285; J1650; J2785; Q9967; A9502; C9898; J7030

== ENCOUNTER 2017-10-22 19:44 | Inpatient (IN) | payer OTHER ==
[~2017-10-22] VITALS: Ht 182.9 cm; Wt 77.9 kg
[2017-10-22] MEDS ORDERED: SODIUM CHLORIDE FLUSH 10ML SYR IVF ONE (20:00)
[2017-10-22] MEDS ORDERED: PANTOPRAZOLE 80 MG in SODIUM CHLORIDE 0.9% 50 ML IVPB ONE (20:13)
[2017-10-22] MEDS ORDERED: PANTOPRAZOLE 80 MG in SODIUM CHLORIDE 0.9% 100 ML IV SCH (20:13)
[2017-10-22 20:32] LABS: ALBUMIN 3.3 g/dL (3.4-5.0); ANION GAP 13 mmol/L (5-15); CALCIUM 8.7 mg/dL (8.5-10.1); CHLORIDE 113 mmol/L (98-107)
[2017-10-22 20:35] LABS: INTERNATIONAL NORMALIZED RATIO 0.95 (0.93-1.1); PROTHROMBIN TIME 9.9 Seconds (9.6-11.5)
[2017-10-22 20:37] LABS: CREATININE 1.69 mg/dL (0.7-1.3); TROPONIN I < 0.015 ng/mL (0.000-0.045)
[2017-10-22] MEDS ORDERED: SODIUM CHLORIDE 0.9%, 500ML IVBOLUS ONE (21:00)
[2017-10-22 21:08] LABS: MEAN CORPUSCULAR HEMOGLOBIN 38.2 pg (27.5-34.5); MEAN CORPUSCULAR HGB CONC 33.6 g/dL (33.2-36.2); MEAN CORPUSCULAR VOLUME 113.6 fL (81-97); MEAN PLATELET VOLUME 8.2 fL (7.4-10.4); PLATELET COUNT 261 x10^3/uL (130-400); RED BLOOD COUNT 1.88 x10^6/uL (4.38-5.82); RED CELL DISTRIBUTION WIDTH 17.5 % (9.4-14.8)
[2017-10-22 21:09] LABS: MD YES
[2017-10-22 21:14] LABS: ANISOCYTOSIS 1+; EOS#(MANUAL) 0.13 x10^3/uL (0.0-0.4); EOS% (MANUAL) 2 % (1-7); LYMPH#(MANUAL) 1.15 x10^3/uL (1-3.4); LYMPHS% (MANUAL) 18 % (22-44); MONOS#(MANUAL) 0.64 x10^3/uL (0.3-2.7); MONOS% (MANUAL) 10 % (2-9); SEG#(MANUAL) 4.48 x10^3/uL (1.8-6.8); SEGS% (MANUAL) 70 % (42-75)
[2017-10-22 21:18] LABS: OVALOCYTES 1+; POLYCHROMASIA 1+; STOMATOCYTES 1+; TEAR DROPS 1+
[2017-10-22 21:19] LABS: <PLATELET ESTIMATE> ADEQUATE; <PLT MORPHOLOGY> NORMAL PLT MORPH
[2017-10-22] MEDS ORDERED: DOCUSATE 100 MG CAPSULE PO PRN (23:00)
[2017-10-22] MEDS ORDERED: hydrALAzine 20 MG/ML, 1ML IVPush PRN (23:00)
[2017-10-22] MEDS ORDERED: ONDANSETRON ODT 4 MG PO PRN (23:00)
[2017-10-22] MEDS ORDERED: LORazepam 2 MG/ML, 1ML IVPush PRN (23:00)
[2017-10-22] MEDS: PANTOPRAZOLE 80 MG in SODIUM CHLORIDE 0.9% 100 ML IV SCH (23:00)
[2017-10-22 23:25] VITALS: BP 135/65
[2017-10-22 23:41] VITALS: BP 131/55
[2017-10-22 23:56] VITALS: BP 131/55
[2017-10-23] VITALS (7 sets, daily range): BP systolic 115–131; BP diastolic 58–76
[2017-10-23] MEDS: morphine SULFATE 10 MG/ML, 1ML IVPush PRN (03:15)
[2017-10-23 05:47] LABS: MEAN CORPUSCULAR HEMOGLOBIN 35.9 pg (27.5-34.5); MEAN CORPUSCULAR HGB CONC 33.4 g/dL (33.2-36.2); MEAN CORPUSCULAR VOLUME 107.5 fL (81-97); MEAN PLATELET VOLUME 8.6 fL (7.4-10.4); PLATELET COUNT 221 x10^3/uL (130-400); RED BLOOD COUNT 2.07 x10^6/uL (4.38-5.82); RED CELL DISTRIBUTION WIDTH 23.4 % (9.4-14.8)
[2017-10-23 05:52] LABS: ANION GAP 9 mmol/L (5-15); CALCIUM 8.4 mg/dL (8.5-10.1); CHLORIDE 118 mmol/L (98-107); CREATININE 1.48 mg/dL (0.7-1.3)
[2017-10-23 06:31] LABS: BASOPHILS # (AUTO) 0.05 x10^3/uL (0-0.1); BASOPHILS % (AUTO) 1 % (0-1); EOSINOPHILS # (AUTO) 0.14 x10^3/uL (0-0.4); EOSINOPHILS % (AUTO) 2 % (1-7); LYMPHOCYTES % (AUTO) 24 % (22-44); MD SCAN; MONOCYTES # (AUTO) 0.66 x10^3/uL (0.2-0.8); MONOCYTES % (AUTO) 11 % (2-9); NEUTROPHILS % (AUTO) 62 % (42-75)
[2017-10-23] MEDS: PANTOPRAZOLE 80 MG in SODIUM CHLORIDE 0.9% 100 ML IV SCH ×2 (06:36→17:36)
[2017-10-23 08:54] LABS: FOLATE LEVEL 17.1 ng/mL (3.1-17.5)
[2017-10-23] MEDS: CYANOCOBALAMIN 1,000 MCG TABLET PO SCH (12:14)
[2017-10-23 20:22] LABS: OCCULT BLOOD POSITIVE (NEGATIVE)
[2017-10-24] MEDS: morphine SULFATE 10 MG/ML, 1ML IVPush PRN (00:05)
[2017-10-24 00:22] VITALS: BP 104/61
[2017-10-24] MEDS: PANTOPRAZOLE 80 MG in SODIUM CHLORIDE 0.9% 100 ML IV SCH (04:16)
[2017-10-24 05:49] LABS: ANION GAP 6 mmol/L (5-15); CHLORIDE 117 mmol/L (98-107); CREATININE 1.44 mg/dL (0.7-1.3)
[2017-10-24 05:57] LABS: MEAN CORPUSCULAR HGB CONC 34.4 g/dL (33.2-36.2); MEAN CORPUSCULAR VOLUME 107.5 fL (81-97); MEAN PLATELET VOLUME 8.5 fL (7.4-10.4); PLATELET COUNT 190 x10^3/uL (130-400); RED BLOOD COUNT 1.97 x10^6/uL (4.38-5.82); RED CELL DISTRIBUTION WIDTH 22.5 % (9.4-14.8)
[2017-10-24 06:27] LABS: BASOPHILS # (AUTO) 0.05 x10^3/uL (0-0.1); BASOPHILS % (AUTO) 1 % (0-1); EOSINOPHILS # (AUTO) 0.19 x10^3/uL (0-0.4); EOSINOPHILS % (AUTO) 3 % (1-7); LYMPHOCYTES # (AUTO) 1.45 x10^3/uL (1-3.4); LYMPHOCYTES % (AUTO) 26 % (22-44); MD SCAN; MONOCYTES # (AUTO) 0.62 x10^3/uL (0.2-0.8); MONOCYTES % (AUTO) 11 % (2-9); NEUTROPHILS # (AUTO) 3.37 x10^3/uL (1.8-6.8); NEUTROPHILS % (AUTO) 59 % (42-75)
[2017-10-24 06:35] VITALS: BP 114/61
[2017-10-24] MEDS: CYANOCOBALAMIN 1,000 MCG TABLET PO SCH (10:45)
[2017-10-24] MEDS: IRON SUCROSE COMPLEX 100MG/5ML IV SCH (10:45)
[2017-10-24 13:20] VITALS: BP 145/65
[2017-10-24] MEDS: ASPIRIN 81 MG TABLET EC PO SCH (18:18)
[2017-10-24 19:32] VITALS: BP 150/57
[2017-10-24] MEDS: PANTOPROZOLE 40MG TABLET PO SCH (20:31)
[2017-10-25 01:31] VITALS: BP 105/51
[2017-10-25 05:45] LABS: ALBUMIN 2.8 g/dL (3.4-5.0); ANION GAP 6 mmol/L (5-15); CALCIUM 7.6 mg/dL (8.5-10.1); CHLORIDE 113 mmol/L (98-107)
[2017-10-25 05:50] LABS: ALANINE AMINOTRANSFERASE 18 U/L (12-78); ALKALINE PHOSPHATASE 38 U/L (45-117); BILIRUBIN,TOTAL 0.4 mg/dL (0.2-1.0); CREATININE 1.48 mg/dL (0.7-1.3); TOTAL PROTEIN 5.7 g/dL (6.4-8.2)
[2017-10-25 05:52] LABS: MEAN CORPUSCULAR HEMOGLOBIN 35.6 pg (27.5-34.5); MEAN CORPUSCULAR VOLUME 107.7 fL (81-97); MEAN PLATELET VOLUME 8.2 fL (7.4-10.4); PLATELET COUNT 199 x10^3/uL (130-400); RED BLOOD COUNT 2.03 x10^6/uL (4.38-5.82); RED CELL DISTRIBUTION WIDTH 21.2 % (9.4-14.8)
[2017-10-25 06:30] LABS: BASOPHILS # (AUTO) 0.04 x10^3/uL (0-0.1); BASOPHILS % (AUTO) 1 % (0-1); EOSINOPHILS # (AUTO) 0.12 x10^3/uL (0-0.4); EOSINOPHILS % (AUTO) 2 % (1-7); LYMPHOCYTES # (AUTO) 1.21 x10^3/uL (1-3.4); LYMPHOCYTES % (AUTO) 21 % (22-44); MD SCAN; MONOCYTES % (AUTO) 11 % (2-9); NEUTROPHILS # (AUTO) 3.72 x10^3/uL (1.8-6.8); NEUTROPHILS % (AUTO) 65 % (42-75)
[2017-10-25 07:00] VITALS: BP 126/57
[2017-10-25] MEDS: PANTOPROZOLE 40MG TABLET PO SCH (07:52)
[2017-10-25] MEDS: IRON SUCROSE COMPLEX 100MG/5ML IV SCH (09:37)
[2017-10-25] MEDS: CYANOCOBALAMIN 1,000 MCG TABLET PO SCH (09:37)
[2017-10-25] MEDS: ASPIRIN 81 MG TABLET EC PO SCH (09:37)
[2017-10-25] MEDS ORDERED: ASPI325T17 PO (12:15)
[2017-10-25] MEDS ORDERED: PANT40TA5 PO (12:15)
[2017-10-25] MEDS ORDERED: CYAN10005 PO (12:15)
[2017-10-25] MEDS ORDERED: IRON100V IV (12:15)
[2017-10-25 13:40] VITALS: BP 117/57
== END 2017-10-25 15:46 | disposition home or self-care (01) | DRG 377 ==
LOC: ED 21:00 → EDIP 21:07 → 5SO 22:57
PROVIDERS: ADMIT Internal Medicine; ATTEND Internal Medicine
PROC: 30233N1 Transfusion of Nonautologous Red Blood Cells into Peripheral Vein, Percutaneous Approach (ICD-10-PCS; principal; 2017-10-22)
DX: K92.2 Gastrointestinal hemorrhage, unspecified (principal); N17.0 Acute kidney failure with tubular necrosis; G93.40 Encephalopathy, unspecified; Q61.3 Polycystic kidney, unspecified; D68.9 Coagulation defect, unspecified; G90.9 Disorder of the autonomic nervous system, unspecified; I48.91 Unspecified atrial fibrillation; D50.9 Iron deficiency anemia, unspecified; D62 Acute posthemorrhagic anemia; D75.89 Other specified diseases of blood and blood-forming organs; E53.8 Deficiency of other specified B group vitamins; E86.0 Dehydration; I13.10 Hypertensive heart and chronic kidney disease without heart failure, with stage 1 through stage 4 chronic kidney disease, or unspecified chronic kidney disease; K59.00 Constipation, unspecified; N18.9 Chronic kidney disease, unspecified; N40.0 Benign prostatic hyperplasia without lower urinary tract symptoms; Z96.642 Presence of left artificial hip joint; Z96.659 Presence of unspecified artificial knee joint; R55 Syncope and collapse; R79.89 Other specified abnormal findings of blood chemistry; J44.9 Chronic obstructive pulmonary disease, unspecified; Z79.01 Long term (current) use of anticoagulants; Z80.1 Family history of malignant neoplasm of trachea, bronchus and lung; Z82.3 Family history of stroke; Z87.891 Personal history of nicotine dependence; Z95.0 Presence of cardiac pacemaker; Z85.46 Personal history of malignant neoplasm of prostate; Z71.6 Tobacco abuse counseling
CPT/HCPCS: 36415; 36430; 70450; 71045; 76770; 80048; 80053; 82040; 82272; 82306; 82607; 82728; 82746; 83540; 83550; 83735; 83880; 84100; 84484; 85025; 85610; 86850; 86900; 86923; 93005; 96365; 96368; J1756; C9113; J2060; J2270; J7040; P9016

== ENCOUNTER → 2019-08-21 | Outpatient (CLI) | payer MEDICARE ==
[~2019-08-21] MED LIST changes: +CYAN-27 PO; +IRON100V IV; +METO50TA82 PO; +PANT40TA5 PO; +SERT50TA PO; +[UNRECOGNIZED DRUG - OTHER]
== END | disposition home or self-care (01) ==
LOC: CFH 14:38
PROVIDERS: ATTEND Internal Medicine Cardiovascular Disease
DX: I08.2 Rheumatic disorders of both aortic and tricuspid valves (principal); I48.91 Unspecified atrial fibrillation
CPT/HCPCS: 93306

== ENCOUNTER → 2020-04-01 | Outpatient (CLI) | payer MEDICARE ==
[~2020-04-01] MED LIST changes: +LEVE500T53 PO; -PANT40TA5 PO; +PANT40TA6 PO
== END | disposition home or self-care (01) ==
LOC: CFH 11:24
PROVIDERS: ATTEND Internal Medicine Nephrology
DX: N28.1 Cyst of kidney, acquired (principal); N40.0 Benign prostatic hyperplasia without lower urinary tract symptoms; I12.9 Hypertensive chronic kidney disease with stage 1 through stage 4 chronic kidney disease, or unspecified chronic kidney disease; N18.30 Chronic kidney disease, stage 3 unspecified
CPT/HCPCS: 76770